=== PATIENT | female | born 1995 | race Caucasian/White ===

== ENCOUNTER 2018-08-28 07:57 | Emergency (ER) | payer BC ==
[2018-08-28 08:36] LABS: HCG UR QUAL NEGATIVE
--- NOTE | 2018-08-28 09:37 | ED Physician Documentation ---
PD HPI URI - Stated complaint Stated Complaint: FLU LIKE SYMPTOMS - Chief complaint Chief Complaint: Fever - History obtained from History obtained from: Patient - History of Present Illness Timing - onset: How many days ago (3) Timing duration: Days (3) Timing details: Gradual onset, Still present Associated symptoms: Fever, Chills, Sweats, Nasal congestion, Rhinorrhea, Sore throat, Dry cough Contributing factors: Sick contact Improves by: Rest, Medication Similar symptoms before: Has not had sx before Recently seen: Not recently seen - Additional information Additional information: Previously well 23-year-old female has developed cough and congestion about 3 days ago and she developed a high fever last night. She has muscle aches and pains and other people at her work have been sick. Review of Systems Constitutional: reports: Fever, Chills, Myalgias, Fatigue Eyes: denies: Decreased vision Ears: denies: Ear pain Nose: reports: Rhinorrhea / runny nose, Congestion Throat: reports: Sore throat Cardiac: denies: Chest pain / pressure, Palpitations Respiratory: reports: Cough. denies: Dyspnea GI: denies: Vomiting : denies: Dysuria PD PAST MEDICAL HISTORY - Past Medical History Past Medical History: No Other Past Medical History: Alpha 1 deficincey. - Past Surgical History Past Surgical History: Yes HEENT: Tonsil/Adenoidectomy - Present Medications Home Medications: Ambulatory Orders Medication Instructions Recorded Confirmed Amox/Clav 875/125 [Augmentin] 1 each PO Q12H #20 tablet 08/28/18 Oseltamivir [Tamiflu] 75 mg PO BID 5 Days #10 capsule 08/28/18 - Allergies Allergies/Adverse Reactions: Allergies Allergy/AdvReac Type Severity Reaction Status Date / Time No Known Drug Allergies Allergy Verified 08/28/18 08:11 - Social History Does the pt smoke?: No Smoking Status: Never smoker Does the pt drink ETOH?: No Does the pt have substance abuse?: No - Immunizations Immunizations are current?: Yes PD ED PE NORMAL - Vitals Vital signs reviewed: Yes (tachy ) - General General: Alert and oriented X 3, No acute distress, Well developed/nourished - HEENT HEENT: Atraumatic, PERRL, EOMI, Pharynx benign, Other (both TM's are inflamed with the left more inflamed than the right with some distortion of the landmarks. ) - Neck Neck: Supple, no meningeal sign, No bony TTP - Cardiac Cardiac: No murmur, Other (tachy to 110) - Respiratory Respiratory: No respiratory distress, Clear bilaterally - Abdomen Abdomen: Soft, Non tender - Back Back: No CVA TTP, No spinal TTP - Derm Derm: Normal color, Warm and dry, No rash - Extremities Extremities: No deformity, No edema - Neuro Neuro: Alert and oriented X 3, engineer conductor 2-12 intact, No motor deficit, No sensory def icit, Normal speech Eye Opening: Spontaneous Motor: Obeys Commands Verbal: Oriented GCS Score: 15 - Psych Psych: Normal mood, Normal affect Results - Vitals Vitals: Vital Signs - 24 hr 08/28/18 08:09 Temperature 37.2 C Heart Rate 124 H Respiratory 16 Rate Blood Pressure 127/70 O2 Saturation 98 Oxygen O2 Source Room air - Labs Labs: Laboratory Tests 08/28/18 08/28/18 08:20 08:20 Ur Specific [place] 1.020 Urine HCG, Qual NEGATIVE Influenza A (Rapid) POSITIVE H Influenza B (Rapid) Negative PD MEDICAL DECISION MAKING - ED course Complexity details: considered differential, d/w patient ED course: 23-year-old female with URI 3 days developed a fever last night and is now positive for influenza A. In addition she has otitis on examination. She is administered dexamethasone 10 mg orally and we will place her on some Tamiflu and Augmentin. Departure - Departure Disposition: 01 Home, Self Care Clinical Impression: Influenza A Otitis media Qualifiers: Otitis media type: suppurative Chronicity: acute Laterality: bilateral Recurrence: not specified as recurrent Spontaneous tympanic membrane rupture: without spontaneous rupture Qualified Code(s): H66.003 - Acute suppurative otitis media without spontaneous rupture of ear drum, bilateral Condition: Stable Instructions: ED Flu, ED Otitis Media Acute Adult Follow-Up: [facility] [Provider Group] Prescriptions: Amox/Clav 875/125 [Augmentin] 1 each PO Q12H #20 tablet Oseltamivir [Tamiflu] 75 mg PO BID 5 Days #10 capsule
[2018-08-28 09:47] VITALS: BP 126/74
[2018-08-28] MEDS ORDERED: DEXAMETHASONE 10 MG/ML VIAL PO STA (10:12)
== END 2018-08-28 10:15 | disposition home or self-care (01) ==
LOC: ED 07:57
DX: J10.1 Influenza due to other identified influenza virus with other respiratory manifestations (principal); H66.003 Acute suppurative otitis media without spontaneous rupture of ear drum, bilateral
CPT/HCPCS: 81025; 87275; 87276; 99283

== ENCOUNTER 2019-03-06 08:50 | Outpatient (CLI) | payer OTHER ==
--- NOTE | 2019-03-06 10:34 | Ultrasound Report ---
Reason: TEST POSITIVE Procedure Date: 03/06/2019 Accession Number: [id number] / [id number] Procedure: US - OB First Trimester CPT Code: FULL RESULT: EXAM: FIRST TRIMESTER OBSTETRIC ULTRASOUND (Less than 11 weeks) EXAM DATE: 03/06/2019 09:34 AM. CLINICAL HISTORY: test positive. LMP: Unknown. COMPARISONS: None. TECHNIQUE: Transabdominal and transvaginal ultrasound examination with static image documentation. CLINICAL DATES: EGA 13 weeks 2 days with JEANNE 09/09/2019 based on LMP. ASSESSMENT: Gestational Sac: Single intrauterine. Mean gestational sac diameter: 65 mm = 12 weeks 6 days. Embryo: CRL (crown-rump length) 70 mm = 13 weeks 1 day. Cardiac activity: 144 beats per minute. Yolk sac: Not visualized. Amniotic fluid: Not accurately assessed at this gestational age. Early placenta: Posterior. Other: No perigestational fluid collection demonstrated. MATERNAL STRUCTURES: Uterus: Anteverted/Retroverted. Unremarkable. Cervix: Closed. Right Ovary/Adnexa: The ovary measures cm, volume cc. Unremarkable. Left Ovary/Adnexa: The ovary measures cm, volume cc. Unremarkable. Free Fluid: None. Other: None. IMPRESSION: 1. Single viable intrauterine at EGA 13 weeks 1 day with JEANNE 09/10/2019 based on crown-rump length, which is concordant with clinical dates. 2. Assigned dating is JEANNE 09/10/2019 based on current ultrasound. RADIA
== END 2019-03-06 08:51 | disposition home or self-care (01) ==
LOC: DI 08:50
PROVIDERS: ATTEND Obstetrics & Gynecology
DX: Z32.01 Encounter for pregnancy test, result positive (principal)
CPT/HCPCS: 76801

== ENCOUNTER 2019-03-14 08:00 | Outpatient (CLI) | payer OTHER ==
[2019-03-14 15:42] LABS: MUDS CUTOFF CONCENTRATIONS CUTOFF CONC BELOW:
[2019-03-14 16:08] LABS: BILIRUBIN,URINE NEGATIVE (NEGATIVE); GLUCOSE, URINE (UA) NEGATIVE (NEGATIVE); KETONES,URINE (UA) NEGATIVE (NEGATIVE); LEUKOCYTE ESTERASE, URINE NEGATIVE (NEGATIVE); NITRITE,URINE NEGATIVE (NEGATIVE); OCCULT BLOOD,URINE MODERATE (NEGATIVE); PROTEIN,URINE NEGATIVE (NEGATIVE); UROBILINOGEN,URINE 0.2 (NORMAL) E.U./dL (NORMAL)
[2019-03-14 16:12] LABS: CLARITY,URINE CLOUDY (CLEAR)
[2019-03-14 17:14] LABS: AMPHETAMINE SCREEN,URINE NEGATIVE (NEGATIVE); BENZODIAZEPINES SCREEN, URINE NEGATIVE (NEGATIVE); COCAINE SCREEN URINE NEGATIVE (NEGATIVE); METHADONE SCREEN, URINE NEGATIVE (NEGATIVE); METHAMPHETAMINES SCREEN, URINE NEGATIVE (NEGATIVE); OPIATE SCREEN, URINE NEGATIVE (NEGATIVE); OXYCODONE SCREEN, URINE NEGATIVE (NEGATIVE); PROPOXYPHENE SCREEN, URINE NEGATIVE (NEGATIVE); TRICYCLIC ANTIDEPRESSANT,URINE NEGATIVE (NEGATIVE)
[2019-03-14 17:46] LABS: AMORPHOUS SEDIMENT,UR Marked /LPF; BACTERIA,URINE None Seen /HPF (None Seen); SQUAMOUS EPITHELIAL CELL,UR FEW Squamous (<= Few)
[2019-03-14 21:23] LABS: CANDIDA GROUP DNA NEGATIVE (NEGATIVE); CANDIDA KRUSEI DNA NEGATIVE (NEGATIVE); TRICHOMONAS VAGINALIS DNA NEGATIVE (NEGATIVE)
[2019-03-14 22:24] LABS: TRICHOMONAS VAGINALIS DNA NEGATIVE (NEGATIVE)
== END 2019-03-14 23:59 | disposition home or self-care (01) ==
LOC: LAB.R 08:00
PROVIDERS: ATTEND Obstetrics & Gynecology
DX: Z11.3 Encounter for screening for infections with a predominantly sexual mode of transmission (principal); N89.8 Other specified noninflammatory disorders of vagina; Z36.89 Encounter for other specified antenatal screening
CPT/HCPCS: 80306; 81001; 87086; 87491; 87591; 87661; 87801

== ENCOUNTER 2019-03-19 14:33 | Outpatient (CLI) | payer OTHER ==
[2019-03-19 14:56] LABS: BASOPHILS % (AUTO) 0.1 %; EOSINOPHILS % (AUTO) 0.3 %; HGB - HEMOGLOBIN 14.4 g/dL (12.0-16.0); LYMPHOCYTES # (AUTO) 1.2 10^3/uL (1.5-3.5); LYMPHOCYTES % (AUTO) 15.5 %; MEAN CORPUSCULAR HEMOGLOBIN 29.5 pg (27.0-31.0); MEAN CORPUSCULAR HGB CONC 33.2 g/dL (32.0-36.0); MEAN CORPUSCULAR VOLUME 88.9 fL (81.0-99.0); MEAN PLATELET VOLUME 11.1 fL (7.9-10.8); MONOCYTES # (AUTO) 0.4 10^3/uL (0.0-1.0); MONOCYTES % (AUTO) 5.9 %; NEUTROPHILS # (AUTO) 5.8 10^3/uL (1.5-6.6); NEUTROPHILS % (AUTO) 77.8 %; PLT - PLATELET COUNT 192 10^3/uL (130-450); RED BLOOD COUNT 4.88 10^6/uL (4.20-5.40); RED CELL DISTRIBUTION WIDTH 12.2 % (12.0-15.0); WHITE BLOOD COUNT 7.4 x10^3/uL (4.8-10.8)
[2019-03-19 15:00] LABS: BILIRUBIN,URINE NEGATIVE (NEGATIVE); GLUCOSE, URINE (UA) NEGATIVE (NEGATIVE); KETONES,URINE (UA) TRACE mg/dL (NEGATIVE); LEUKOCYTE ESTERASE, URINE TRACE (NEGATIVE); MUDS CUTOFF CONCENTRATIONS CUTOFF CONC BELOW:; NITRITE,URINE NEGATIVE (NEGATIVE); OCCULT BLOOD,URINE NEGATIVE (NEGATIVE); PH,URINE 5.5 PH (5.0-7.5); PROTEIN,URINE NEGATIVE (NEGATIVE); UROBILINOGEN,URINE 0.2 (NORMAL) E.U./dL (NORMAL)
[2019-03-19 15:05] LABS: CLARITY,URINE CLEAR (CLEAR)
[2019-03-19 15:09] LABS: AMPHETAMINE SCREEN,URINE NEGATIVE (NEGATIVE); BACTERIA,URINE Rare /HPF (None Seen); BENZODIAZEPINES SCREEN, URINE NEGATIVE (NEGATIVE); COCAINE SCREEN URINE NEGATIVE (NEGATIVE); METHADONE SCREEN, URINE NEGATIVE (NEGATIVE); METHAMPHETAMINES SCREEN, URINE NEGATIVE (NEGATIVE); OPIATE SCREEN, URINE NEGATIVE (NEGATIVE); OXYCODONE SCREEN, URINE NEGATIVE (NEGATIVE); PROPOXYPHENE SCREEN, URINE NEGATIVE (NEGATIVE); RBC,URINE None Seen /HPF (0-5); SQUAMOUS EPITHELIAL CELL,UR MOD Squamous (<= Few); TRICYCLIC ANTIDEPRESSANT,URINE NEGATIVE (NEGATIVE)
[2019-03-19 20:13] LABS: TRICHOMONAS VAGINALIS DNA NEGATIVE (NEGATIVE)
[2019-03-20 11:48] LABS: HEPATITIS C ANTIBODY NON-REACTIVE (NON-REACTIVE)
[2019-03-20 14:22] LABS: HEPATITIS B SURFACE ANTIGEN NON-REACTIVE (NON-REACTIVE)
[2019-03-20 15:56] LABS: HIV AG/AB 4TH GEN NON-REACTIVE (NON-REACTIVE)
== END 2019-03-19 14:34 | disposition home or self-care (01) ==
LOC: LAB 14:33
PROVIDERS: ATTEND Obstetrics & Gynecology
DX: Z36.89 Encounter for other specified antenatal screening (principal); Z11.3 Encounter for screening for infections with a predominantly sexual mode of transmission; O26.899 Other specified pregnancy related conditions, unspecified trimester; Z3A.00 Weeks of gestation of pregnancy not specified; N89.8 Other specified noninflammatory disorders of vagina
CPT/HCPCS: 36415; 80306; 81001; 81003; 81599; 85025; 86592; 86762; 86803; 86850; 86900; 86901; 87086; 87340; 87389; 87491; 87591; 87661; 87801

== ENCOUNTER 2019-04-24 17:46 | Outpatient (CLI) | payer OTHER ==
[2019-04-24 18:03] VITALS: BP 124/67
[2019-04-24 18:32] LABS: BILIRUBIN,URINE NEGATIVE (NEGATIVE); GLUCOSE, URINE (UA) NEGATIVE (NEGATIVE); KETONES,URINE (UA) NEGATIVE (NEGATIVE); LEUKOCYTE ESTERASE, URINE NEGATIVE (NEGATIVE); NITRITE,URINE NEGATIVE (NEGATIVE); OCCULT BLOOD,URINE NEGATIVE (NEGATIVE); PROTEIN,URINE NEGATIVE (NEGATIVE); UROBILINOGEN,URINE 0.2 (NORMAL) E.U./dL (NORMAL)
[2019-04-24 18:35] LABS: CLARITY,URINE CLEAR (CLEAR)
--- NOTE | 2019-04-24 19:14 | PROVIDER PROGRESS NOTE ---
- HPI Chief Complaint: Other (20 week Ab2 dysuria. 2 week Hx of urgency frequency and dysuria. Hx of frequent UTIs. UA is negative for nitrites, Lucocytes.) Current : Vital Signs Temperature 36.6 C 04/24/19 18:02 Heart Rate 93 04/24/19 18:02 Respiratory Rate 20 04/24/19 18:02 Blood Pressure 124/67 04/24/19 18:02 O2 Saturation 96 04/24/19 18:02 Temperature 36.6 C 04/24/19 18:02 Heart Rate 93 04/24/19 18:02 Respiratory Rate 20 04/24/19 18:02 Blood Pressure 124/67 04/24/19 18:02 O2 Saturation 96 04/24/19 18:02 - Procedures Findings: PE VS t 36.7 Heartt RRR Lung clear Abdomin soft tender supra pubic no Calf tenderness. nor FHR. 20 weeks with classic symptoms of UTI and Hx of frequent UTI Rx Macrobid 5 days Keep Appt tomorrw.
== END 2019-04-24 18:55 | disposition home or self-care (01) ==
LOC: WFO 17:46 → FBP 17:49 → WFO 18:55
PROVIDERS: ATTEND Obstetrics & Gynecology
DX: O99.89 Other specified diseases and conditions complicating pregnancy, childbirth and the puerperium (principal); R35.0 Frequency of micturition; R30.0 Dysuria; Z87.440 Personal history of urinary (tract) infections; Z3A.20 20 weeks gestation of pregnancy
CPT/HCPCS: 81001; 81003; 87086; 99212

== ENCOUNTER 2019-04-25 08:00 | Outpatient (CLI) | payer OTHER ==
[2019-04-25 18:17] LABS: CANDIDA GROUP DNA NEGATIVE (NEGATIVE); CANDIDA KRUSEI DNA NEGATIVE (NEGATIVE); TRICHOMONAS VAGINALIS DNA NEGATIVE (NEGATIVE)
== END 2019-04-25 23:59 | disposition home or self-care (01) ==
LOC: LAB.R 08:00
PROVIDERS: ATTEND Obstetrics & Gynecology
DX: N89.8 Other specified noninflammatory disorders of vagina (principal)
CPT/HCPCS: 87661; 87801

== ENCOUNTER 2019-06-14 12:47 | Outpatient (CLI) | payer OTHER ==
[2019-06-14 13:20] LABS: ALBUMIN 3.1 g/dL (3.2-5.5); ALBUMIN/GLOBULIN RATIO 0.9 (1.0-2.2); BILIRUBIN,TOTAL 0.9 mg/dL (0.2-1.0); CREATININE 0.5 mg/dL (0.4-1.0); TOTAL PROTEIN 6.6 g/dL (6.7-8.2)
== END 2019-06-14 12:48 | disposition home or self-care (01) ==
LOC: LAB 12:47
PROVIDERS: ATTEND Obstetrics & Gynecology
DX: O99.280 Endocrine, nutritional and metabolic diseases complicating pregnancy, unspecified trimester (principal); E88.01 Alpha-1-antitrypsin deficiency; Z3A.00 Weeks of gestation of pregnancy not specified
CPT/HCPCS: 36415; 80053

== ENCOUNTER 2019-06-17 11:43 | Outpatient (CLI) | payer OTHER ==
[2019-06-17 13:03] LABS: HGB - HEMOGLOBIN 12.8 g/dL (12.0-16.0); MEAN CORPUSCULAR HEMOGLOBIN 29.4 pg (27.0-31.0); MEAN CORPUSCULAR HGB CONC 32.3 g/dL (32.0-36.0); RED BLOOD COUNT 4.35 10^6/uL (4.20-5.40); RED CELL DISTRIBUTION WIDTH 13.1 % (12.0-15.0); WHITE BLOOD COUNT 7.8 x10^3/uL (4.8-10.8)
== END 2019-06-17 11:44 | disposition home or self-care (01) ==
LOC: LAB 11:43
PROVIDERS: ATTEND Obstetrics & Gynecology
DX: O36.0990 Maternal care for other rhesus isoimmunization, unspecified trimester, not applicable or unspecified (principal); Z3A.00 Weeks of gestation of pregnancy not specified
CPT/HCPCS: 36415; 82950; 85027; 86850

== ENCOUNTER 2019-08-21 14:20 | Outpatient (CLI) | payer BC, OTHER | END 2019-08-21 14:21 | disposition home or self-care (01) | LOC: COV 14:20 | PROVIDERS: ATTEND Family Medicine | DX: R05 Cough (principal); R50.9 Fever, unspecified | CPT/HCPCS: 81599 ==

== ENCOUNTER 2019-08-23 08:00 | Outpatient (CLI) | payer BC, OTHER ==
[2019-08-23 21:59] LABS: TRICHOMONAS VAGINALIS DNA NEGATIVE (NEGATIVE)
== END 2019-08-23 23:59 | disposition home or self-care (01) ==
LOC: LAB.R 08:00
PROVIDERS: ATTEND Advanced Practice Midwife
DX: O09.90 Supervision of high risk pregnancy, unspecified, unspecified trimester (principal)
CPT/HCPCS: 87491; 87591; 87661; 87797

== ENCOUNTER 2019-09-13 07:40 | Outpatient (CLI) | payer OTHER ==
--- NOTE | 2019-09-14 20:10 | Ultrasound Report ---
Reason: SUPERVISION HIGH RISK Procedure Date: 09/13/2019 Accession Number: [id number] / [id number] Procedure: US - OB Biophysical Profile CPT Code: Final Report FULL RESULT: EXAM: BIOPHYSICAL PROFILE EXAM DATE: 09/13/2019 08:46 AM. CLINICAL HISTORY: Supervision high-risk . Unspecified trimester. COMPARISON: 03/06/2019. TECHNIQUE: Real-time sonographic evaluation of the fetus performed by the facility maintenance technician. Multiple lifeline representatives static images were saved for review. DATING: Established EGA 40 weeks, 4 days with JEANNE 09/09/2019. GENERAL EVALUATION Nicole . Cardiac activity: 128 bpm. movement: Visualized. Presentation: Cephalic. Placenta: Posterior fundal position. Amniotic fluid: Normal. GABI 4.6 cm. MVP 13.2 cm. BIOPHYSICAL PROFILE Breathing = 2 Movement = 2 Tone = 2 Amniotic Fluid = 2 Total 01/10 IMPRESSION: 1. Nicole live intrauterine with gestational age 40 weeks, 4 days based on established JEANNE. 2. Biophysical profile score 8 of 8. MARS
== END 2019-09-13 07:41 | disposition home or self-care (01) ==
LOC: DI 07:40
PROVIDERS: ATTEND Advanced Practice Midwife
DX: O09.93 Supervision of high risk pregnancy, unspecified, third trimester (principal); Z3A.40 40 weeks gestation of pregnancy
CPT/HCPCS: 76819

== ENCOUNTER 2019-09-13 18:58 | Outpatient (CLI) | payer OTHER ==
[2019-09-13 21:02] LABS: RUPTURE OF MEMBRANES PLUS NEGATIVE (NEGATIVE)
[2019-09-13 21:37] VITALS: BP 134/87
--- NOTE | 2019-09-17 11:00 | PROVIDER PROGRESS NOTE ---
- HPI Chief Complaint: Leakage of vaginal fluid (concerened about possible SROM) Current : Current EDU 09/09/19 Gestation 40 Weeks and 4 Days 3 Para 0 Vital Signs Temperature 36.5 C 09/13/19 19:02 Heart Rate 103 H 09/13/19 19:02 Respiratory Rate 18 09/13/19 19:02 Blood Pressure 129/89 H 09/13/19 19:02 Temperature 36.5 C 09/13/19 19:02 Heart Rate 82 09/13/19 19:02 Respiratory Rate 18 09/13/19 19:02 Blood Pressure 134/87 H 09/13/19 19:02 O2 Saturation - Procedures OB Procedure Performed: NST (reactive) Diagnosis/Indication for NST: Other (R/O SROM) NST Procedure: NST Procedure Start Date 09/13/19 Start Time 18:54 Stop Time 21:25 Vibroacoustic Stimulation Used No Patient States Movement Yes Service Date of procedure: 09/13/19 Findings: ROM + Negative - Plan Plan: Reviewed SROM, FM, Labor.
== END 2019-09-13 20:30 | disposition home or self-care (01) ==
LOC: WFO 18:58 → FBP 19:00 → WFO 20:30
PROVIDERS: ATTEND Obstetrics & Gynecology
DX: O09.93 Supervision of high risk pregnancy, unspecified, third trimester (principal); O99.89 Other specified diseases and conditions complicating pregnancy, childbirth and the puerperium; N89.8 Other specified noninflammatory disorders of vagina; Z3A.40 40 weeks gestation of pregnancy
CPT/HCPCS: 59025; 76819; 84112; 99213

== ENCOUNTER 2019-09-15 00:18 | Inpatient (IN) | payer BC, OTHER ==
[2019-09-15] MEDS ORDERED: SODIUM CHLORIDE FLUSH 0.9% 10 ML SYRINGE IVP PRN (00:58)
[2019-09-15] MEDS ORDERED: SODIUM CHLORIDE FLUSH 0.9% 10 ML SYRINGE IVP SCH (01:00)
[2019-09-15] MEDS ORDERED: LACTATED RINGERS 1,000 ML IV SCH ×2 (01:00→18:00)
[2019-09-15] MEDS ORDERED: AMPICILLIN 2 GM in SODIUM CHLORIDE 0.9% MINIBAG 100 ML IV ONE (01:30)
[2019-09-15 02:00] LABS: BASOPHILS % (AUTO) 0.3 %; EOSINOPHILS # (AUTO) 0.1 10^3/uL (0.0-0.7); EOSINOPHILS % (AUTO) 0.5 %; HGB - HEMOGLOBIN 13.8 g/dL (12.0-16.0); LYMPHOCYTES # (AUTO) 1.6 10^3/uL (1.5-3.5); MEAN CORPUSCULAR HEMOGLOBIN 28.5 pg (27.0-31.0); MEAN CORPUSCULAR HGB CONC 32.5 g/dL (32.0-36.0); MEAN CORPUSCULAR VOLUME 87.4 fL (81.0-99.0); MEAN PLATELET VOLUME 12.3 fL (7.9-10.8); MONOCYTES # (AUTO) 0.8 10^3/uL (0.0-1.0); MONOCYTES % (AUTO) 7.1 %; NEUTROPHILS # (AUTO) 8.2 10^3/uL (1.5-6.6); NEUTROPHILS % (AUTO) 76.2 %; PLT - PLATELET COUNT 161 10^3/uL (130-450); RED BLOOD COUNT 4.85 10^6/uL (4.20-5.40); RED CELL DISTRIBUTION WIDTH 13.3 % (12.0-15.0); WHITE BLOOD COUNT 10.8 x10^3/uL (4.8-10.8)
[2019-09-15 02:18] LABS: URIC ACID 5.2 mg/dL (2.6-7.2)
[2019-09-15 03:50] LABS: ALBUMIN 2.9 g/dL (3.2-5.5); BILIRUBIN,DIRECT 0.1 mg/dL (0.1-0.5); BILIRUBIN,TOTAL 0.7 mg/dL (0.2-1.0); TOTAL PROTEIN 6.4 g/dL (6.7-8.2)
[2019-09-15] MEDS: AMPICILLIN 1 GM in SODIUM CHLORIDE 0.9% MINIBAG 100 ML IV SCH ×3 (06:06→14:35)
--- NOTE | 2019-09-15 08:18 | PROVIDER PROGRESS NOTE ---
Labor Progress Note - Uterine Monitoring Uterine Monitoring Mode: positive: External toco Contraction Frequency (min/apart): none - Monitoring Heart Rate Baseline: 115 Heart Rate Variability: positive: Moderate (6-25 bmp) Accelerations: positive: Present, 15x15 Decelerations: positive: None Strip Review: positive: Category I - Vaginal Exam Dilation (in cm): 4 Effacement (%): 90% Station: -3 Cervical Position: Midposition - Labor Progress Note Labor Progress Note/Additional Text: Not ankur Statr Pit
[2019-09-15] MEDS ORDERED: OXYTOCIN/SODIUM CHLORIDE 500 ML IV SCH (09:00)
--- NOTE | 2019-09-15 10:27 | PREOP HISTORY & PHYSICAL ---
DATE OF SERVICE: 09/15/2019 Physician: Calvin Grullon MD IDENTIFICATION: The patient is a 24-year-old G3, P0, AB2 woman whose EDC is 09/09/2019; this makes h er 41 weeks. CHIEF COMPLAINT: Spontaneous rupture of membranes. HISTORY OF PRESENT ILLNESS: The patient was at home when about 11:45 on the evening of 09/14/2019, s he developed leaking fluids. She presented to Labor and Delivery, at which time she had a ROM-plus pe rformed, which was positive. She also had fluid leaking from the vagina. OB HISTORY: Her OB care, started at 20 weeks at our clinic. Her labs show her to be O-negative. Sh e is rubella equivocal. Her SDI checks are negative. Her 50 gram Glucola was 137. She was GBS posi tive. She received RhoGAM antenatally. PAST MEDICAL HISTORY: Positive for alpha 1 antitrypsin deficiency. She also has anxiety and migrain es. PAST SURGICAL HISTORY: Positive for tonsillectomy, D-and-C. ALLERGIES: SHELLFISH AND LORTAB. CURRENT MEDICATIONS: vitamins. HABITS: The patient has never smoked and is told she should never smoke or be around people who do s moke. FAMILY HISTORY: Positive for a mother with alpha 1 antitrypsin deficiency, who has undergone a doubl e lung transplant as well as a father who has multiple sclerosis. PHYSICAL EXAMINATION: GENERAL: Well-developed, well-nourished female, in no acute distress. VITAL SIGNS: Temperature is 36.7, heart rate is 98, blood pressure initially was 143/84 but came luz k down to 122/65, respirations are 18, saturations were 99. HEENT: Pupils are equal and round. Extraocular muscles are intact. CARDIOVASCULAR: Regular rate and rhythm without murmurs. LUNGS: Lung hauser are clear without rales or wheezes. ABDOMEN: Gravid. Her last abdominal exam showed her fundal height was 39 cm. PELVIC: Cervical examination this morning showed her to be 4 cm. She was 90% effaced. She was -3, vertex presentation with evidence of rupture of membranes. IMPRESSION: 1. A 24-year-old G3, P0 female at 41 weeks. 2. Spontaneous rupture of membranes. 3 Group-B strep positive. 4. Alpha 1 antitrypsin deficiency. PLAN: Since she has not developed contractions, at this point, we will start Pitocin to augment her labor. We will continue with ampicillin during her labor to cover her group-B strep. We will adminis ter an epidural as patient requests. TD: 09/15/2019 09:25
[2019-09-15] MEDS ORDERED: fentaNYL 100 MCG/2 ML VIAL IVP PRN (13:33)
[2019-09-15] MEDS ORDERED: ONDANSETRON 4 MG/2 ML VIAL IVP PRN (15:46)
[2019-09-15] MEDS ORDERED: ONDANSETRON 4 MG/2 ML VIAL ONE (15:53)
[2019-09-15] MEDS ORDERED: miSOPROStoL 200 MCG TABLET ONE (16:21)
[2019-09-15] MEDS ORDERED: LIDOCAINE-MPF 1% 30 ML VIAL ONE (16:45)
[2019-09-15] MEDS ORDERED: diphenhydrAMINE 25 MG CAPSULE PO PRN (17:21)
[2019-09-15] MEDS ORDERED: WITCH HAZEL/GLYCERIN 1 PAD TOP PRN (17:21)
[2019-09-15] MEDS ORDERED: HYDROCORTISONE 1% CREAM 28 GM TUBE PR PRN (17:21)
--- NOTE | 2019-09-15 17:40 | DELIVERY NOTE ---
Delivery Note - Labor Labor: positive: Induced by oxytocin - Infant Delivery Method Delivery Method: positive: Spontaneous vaginal delivery - Presentation Presentation: positive: Vertex, Compound (Right hand), WANDA - right occiput anterior - Anesthetic Anesthetic Type: Anesthetic: positive: Lidocaine - 1% plain Volume: positive: Other (20) - Amniotic Fluid Description Amniotic Fluid Description: positive: Clear - Episiotomy Type Episiotomy Type: positive: Midline (second degree) - Laceration Laceration: positive: None - Suture Suture Type: positive: Vicryl Suture Size: positive: 3-0 - Delivery Outcome Delivery Outcome: positive: Livebirth - : positive: Placed in direct skin contact with mother, Bulb syringe, Stimulated, [place] used sex: positive: Female : Apgars 8/9 - Cord Cord: positive: 3 vessels - Placenta Placenta: positive: Intact, Spontaneous - Estimated Blood Loss Estimated Blood Loss (in cc): 300 - Post Delivery Events Post Delivery Events: positive: No post delivery events - Delivery Comments (Free Text/Narrative) Delivery Comments (Free Text/Narrative): Patient presented to labor and delivery with minimal to no contractions. She received 4 doses of ampicillin because she is group B strep positive. At roughly 8:00 in the morning she was started on Pitocin for induction of labor. She reached maximum 12 milliunits. She develop regular contractions she was given fentanyl for labor analgesia she declined an epidural. She reached complete at 1621. She initiated pushing at that time. She pushed well and at 1642 because of decelerations to the 80s and 90s and episiotomy was cut because of a tight band on the internal portion of posterior vagina the head of the infant easily delivered and at time of delivery the left hand was noted to be on the right shoulder. The cord was also noted to be around the lower portion of the neck posteriorly. The infant delivered without difficulty was placed on the maternal abdomen. The cord was allowed to stop pulsating at which time it was doubly clamped and divided. Her placenta spontaneous delivered at 1659 was inspected and noted to be intact. Her second-degree episiotomy was repaired with 3 of our Vicryl starting at the posterior vagina And progressing to the hymenal ring. [id number]'s were then taken to repair the perineal body deep and then the Perineal body was repaired in the usual fashion. Both mother and infant tolerated delivery well.
[2019-09-15] MEDS ORDERED: OXYTOCIN/SODIUM CHLORIDE 500 ML IV PRN (17:45)
[2019-09-15] MEDS: IBUPROFEN 800 MG TABLET PO SCH (18:21)
[2019-09-15] MEDS: ACETAMINOPHEN 500 MG TABLET PO SCH (18:21)
[2019-09-15] MEDS: DOCUSATE SODIUM 100 MG CAPSULE PO SCH (21:37)
[2019-09-16] MEDS: IBUPROFEN 800 MG TABLET PO SCH ×4 (03:01→20:57)
[2019-09-16] MEDS: ACETAMINOPHEN 500 MG TABLET PO SCH (03:01)
[2019-09-16] MEDS: DOCUSATE SODIUM 100 MG CAPSULE PO SCH ×2 (08:02→20:57)
--- NOTE | 2019-09-16 10:17 | PROVIDER PROGRESS NOTE ---
Subjective - Prog Note Date Prog Note Date: 09/16/19 Prog Note Time: 10:15 - Subjective Pt reports feeling: Improved (pain 08/12. breast feeding. taking motrin) Objective - Vital Signs/Intake & Output Reviewed Vital Signs: Yes Vital Signs: Vital Signs x48h Temp Pulse Resp BP Pulse Ox 09/16/19 08:07 36.3 C L 70 18 127/81 H 100 09/16/19 02:44 36.3 C L 69 16 118/67 99 Intake & Output: Intake & Output 09/13/19 09/14/19 09/15/19 09/16/19 23:59 23:59 23:59 23:59 Intake Total 2021.500 Output Total 300 Balance 1722.500 - Objective General Appearance: positive: No acute distress, Alert Abdomen: positive: Non-tender, Mass (u-3) Extremities: negative: Calf tenderness, Cristina's sign/cords - Lab Results Fish Bones: 09/15/19 01:45 Other Labs: Lab Results x24hrs 09/15/19 Range/Units 20:45 Blood Type O NEGATIVE Weak D (Du) WEAK-D NEGATIVE Maternal Bleed NEGATIVE (NEGATIVE) Assessment/Plan - Problem List (1) (spontaneous vaginal delivery) Impression: progressing well (3) Rh negative status during Impression: baby Rh positive Rhogam
[2019-09-16] MEDS ORDERED: RHO(D) IMMUNE GLOBULIN 300 MCG SYRINGE IM ONE (11:15)
[2019-09-16] MEDS ORDERED: MEASLES,MUMPS & RUBELLA VACC 0.5 ML VIAL SUBQ ONE (11:15)
[2019-09-17] MEDS: IBUPROFEN 800 MG TABLET PO SCH ×2 (03:10→08:48)
[2019-09-17 08:14] VITALS: BP 129/66
--- NOTE | 2019-09-17 08:32 | PROVIDER PROGRESS NOTE ---
Subjective - Prog Note Date Prog Note Date: 09/17/19 Prog Note Time: 08:30 - Subjective Pt reports feeling: Improved (Pain 2/10. breast feeding.) Objective - Vital Signs/Intake & Output Reviewed Vital Signs: Yes Vital Signs: Vital Signs x48h Temp Pulse Resp BP Pulse Ox 09/17/19 08:00 36.7 C 64 17 129/66 09/17/19 03:30 36.6 C 77 20 116/72 97 Intake & Output: Intake & Output 09/14/19 09/15/19 09/16/19 09/17/19 23:59 23:59 23:59 23:59 Intake Total 2021.500 Output Total 300 Balance 1722.500 - Objective General Appearance: positive: No acute distress, Alert Abdomen: positive: Non-tender, No organomegaly, No distention, Mass (U-3) Extremities: negative: Calf tenderness, Cristina's sign/cords - Lab Results Fish Bones: 09/15/19 01:45 Assessment/Plan - Problem List (1) (spontaneous vaginal delivery) Impression: doing well Discharge may room in if needed (3) Rh negative status during Impression: Pt has received her RhoGam.
--- NOTE | 2019-09-17 08:33 | Discharge Plan ---
Discharge Plan Problem Reviewed?: Yes Disposition: Home, Self Care Condition: Good Diet: Regular Activity Restrictions: pelvic rest 6 weeks Shower Restrictions: No Driving Restrictions: No No Smoking: If you smoke, Please STOP! Call for help.
[2019-09-17] MEDS: DOCUSATE SODIUM 100 MG CAPSULE PO SCH (08:48)
--- NOTE | 2019-09-17 09:02 | DISCHARGE SUMMARY ---
Physician: Calvin Grullon MD DATE OF ADMISSION: 09/15/2019 DATE OF DISCHARGE: 09/17/2019 ADMITTING DIAGNOSES 1. A 24-year-old female at 41 weeks. 2. Spontaneous rupture of membranes. 3. Group B Streptococcus positive. 4. Alpha-1 antitrypsin deficiency. DISCHARGE DIAGNOSES 1. A 24-year-old female at 41 weeks. 2. Spontaneous rupture of membranes. 3. Group B Streptococcus positive. 4. Alpha-1 antitrypsin deficiency. PROCEDURES 1. Pitocin augmentation. 2. Assisted vaginal delivery. 3. Episiotomy with repair. PRESENTING HISTORY: Patient is a 24-year-old G3, P0, AB2 female whose EDC was 09/08 making her 41 we eks. She presented with spontaneous rupture of membranes at about 11:45 in the evening of the . She presented with leaking fluid, at which time she had AROM, which was positive. Because she is gr oup B strep positive, it was decided to initiate ampicillin prior to starting Pitocin. She has a fam matthew history of alpha-1 antitrypsin deficiency in a mother who has had a previous lung transplant. Elizabeth montilla herself is a carrier for alpha-1 antitrypsin deficiency. Initially, her blood pressure on admissio n was 143/84. However, this normalized with time. LABORATORIES: Patient's CBC on admission showed a white count of 10.8, hemoglobin was 13.8, hematocr it was 42.4, platelets were 161. Her chemistries showed a uric acid of 5.2. Her AST and ALT were anisha th in the normal limits. HOSPITAL COURSE: Patient admitted, administered amoxicillin for group B strep prophylaxis. On the m orning of the , Pitocin was started because of the lack of spontaneous labor. She developed stro ng uterine contractions. She received fentanyl for labor analgesia, declined an epidural. She reach ed a maximum of 12 milliunits of Pitocin. She reached complete at 1612 and pushed well. She at 1640 received an episiotomy because of decelerations. At time of delivery, she was noted to have a left hand up by the shoulder. There was also a loose nuchal cord, which was presenting. Her c ourse was unremarkable. Her diet was advanced. She is eating regularly. She is being discharged to home at this time. Infant may be having difficulty with high bilirubin levels, therefore, they may keep the . DISCHARGE MEDICATIONS 1. Motrin. 2. She has her home supply of stool softener, as well as bowel stimulants. We have discussed , its advantages as well as its limitations. We have also discussed c ontraception. She will be called back in 1 week to see how she is doing. TD: 09/17/2019 08:40
--- NOTE | 2019-09-17 13:01 | Labor Flowsheet ---
Labor Flowsheet Datetime Report Generated by CPN: 09/17/2019 13:01 Datetime: 09/17/2019 07:54 VITAL SIGNS NBP Sys/Mary/Mean (mmHg): 129 : 66 : 81 Pulse: 64 Datetime: 09/16/2019 20:39 SpO2 (%): 99 Datetime: 09/15/2019 19:00 Stage of : Recovery Datetime: 09/15/2019 17:02 Respirations: 18 Temperature (C): 36.5 Datetime: 09/15/2019 16:59 LaborFlag: Labor Datetime: 09/15/2019 16:58 Medication Comments: pitocin wide open Datetime: 09/15/2019 16:54 Membranes Ruptured Date/Time: 09/14/2019 23:46 Membranes Rupture Method: Spontaneous Amniotic Fluid Color: Clear Amniotic Fluid Amount: Moderate Amniotic Fluid Odor: Normal Datetime: 09/15/2019 16:52 Duration (sec): 40-50 FHR Baseline Rate : 115 Comments: audible decels to 80s Datetime: 09/15/2019 16:50 Stage 2 Comments: episiotomy 2nd degree Datetime: 09/15/2019 16:45 Actions for Decelerations: Oxygen Applied PATIENT CARE Oxygen Amount (LPM): 2 Datetime: 09/15/2019 16:40 MEDICATIONS Pitocin (milliunits): Decreased to @ 10 Datetime: 09/15/2019 16:30 ASSESSMENT A Monitor Mode: Telemetry Variability: Moderate 6-25 bpm Accelerations: 15X15 Decelerations: None Category: Category I Datetime: 09/15/2019 16:22 STAGE 2 Pushing: Coached on Pushing Pushing Position: Pushing with Contractions; Pushing Lithotomy Pushing Progress: Descent with Pushing Datetime: 09/15/2019 16:21 VAGINAL EXAM Dilatation (cm): 10.0 Effacement (%): 100 Station: 2 Exam by: giem Datetime: 09/15/2019 15:57 Vaginal Exam Comments: DrBeatrice Grullon notified, coming to unit Datetime: 09/15/2019 15:54 Antiemetics/Antacids: Zofran (mg) @ 4 Datetime: 09/15/2019 15:44 COMMUNICATION Communication: Call/Page Placed to Provider Provider Notified (Name): Dr. Grullon Notification Reason: Status Update; Patient Request Communication Comments: Notified provider of patient request for zofran. Order received for Zofran 4mg IV Q4 PRN Nausea. Datetime: 09/15/2019 15:00 Contraction Comments: RN @ bedside Datetime: 09/15/2019 14:52 Patient Care Comments: returned from BR Datetime: 09/15/2019 14:50 I/O Interventions: Up to BR Datetime: 09/15/2019 14:12 Patient Position/Activity: Right Lateral Datetime: 09/15/2019 13:56 Temperature Route: Oral Datetime: 09/15/2019 13:47 Analgesics/Sedatives: Fentanyl (mcg) @ 50 Datetime: 09/15/2019 13:30 PAIN Pain Scale: 8 Datetime: 09/15/2019 13:19 Pain Assessment Comments: patient states she is coping well, breathing through ctx. Cervix, Position: Midposition Datetime: 09/15/2019 13:11 Vital Sign Comments: monitor shows materna/ HR coincidence. Maternal HR verified at 94. Datetime: 09/15/2019 12:36 Monitor Interventions for FHR: Ultrasound Adjusted Datetime: 09/15/2019 12:00 Pain Presence: Intermittent Pain Type: Cramping Pain Location: Abdomen Pain Relief Measures: Comfort Measures Pain Coping: Talking Through Contractions Datetime: 09/15/2019 10:34 Antibiotics: Ampicillin IV 1 Gm Datetime: 09/15/2019 09:00 FHR Baseline Changes: No Baseline Change Datetime: 09/15/2019 08:30 Pitocin Checklist: At Least 1 Acceleration of 15 bpm x 15 Seconds in 30 Minutes or Adequate Variabi lity; No More than 1 Late Deceleration Occurred in Past 30 Minutes; No More than 2 Variable Decelerat ions > 60 Seconds in Duration and decreasing >60 bpm in 30 minutes; No More than 5 Uterine Contractio ns in 10 Minutes for any 20 Minute Interval; Uterus Palpates Soft between Contractions Datetime: 09/15/2019 02:59 UTERINE ACTIVITY Monitor Mode: External Monitor Interventions for UA: [place] Adjusted Frequency (min): occasional Quality: Mild Pattern: Normal: <= 5 Contractions in 10 Minutes Resting Tone (Palpate): Relaxed
== END 2019-09-17 12:30 | disposition home or self-care (01) | DRG 807 ==
LOC: WFO 00:18 → FBP 00:19 → WFO 00:57 → FBP 00:58
PROVIDERS: ADMIT Obstetrics & Gynecology; ATTEND Obstetrics & Gynecology
PROC: 10E0XZZ Delivery of Products of Conception, External Approach (ICD-10-PCS; principal; 2019-09-15)
PROC: 0W8NXZZ Division of Female Perineum, External Approach (ICD-10-PCS; 2019-09-15)
PROC: 10907ZC Drainage of Amniotic Fluid, Therapeutic from Products of Conception, Via Natural or Artificial Opening (ICD-10-PCS; 2019-09-15)
DX: O48.0 Post-term pregnancy (principal); Z37.0 Single live birth; O99.824 Streptococcus B carrier state complicating childbirth; O99.284 Endocrine, nutritional and metabolic diseases complicating childbirth; E88.01 Alpha-1-antitrypsin deficiency; O65.5 Obstructed labor due to abnormality of maternal pelvic organs; N89.5 Stricture and atresia of vagina; O32.6XX0 Maternal care for compound presentation, not applicable or unspecified; O69.81X0 Labor and delivery complicated by cord around neck, without compression, not applicable or unspecified; O75.89 Other specified complications of labor and delivery; Z67.41 Type O blood, Rh negative; Z3A.41 41 weeks gestation of pregnancy
CPT/HCPCS: 36415; 80076; 83033; 83615; 84450; 84550; 85025; 86900; 86901; 99212; A9270; J7120

== ENCOUNTER 2020-01-29 08:00 | Outpatient (CLI) | payer BC, OTHER ==
--- NOTE | 2020-01-29 14:11 | XRAY Report ---
PROCEDURE: Foot 3 View RT INDICATIONS: RIGHT FOOT PAIN TECHNIQUE: 3 views of the foot were acquired. COMPARISON: None FINDINGS: Bones: No fractures or dislocations. No suspicious bony lesions. Soft tissues: No tibiotalar joint effusion. Achilles tendon appears normal. IMPRESSION: No fracture. No osseous lesion. If there is continued clinical concern for pathology, then repeat jillian in film radiographs (7-10 days) or advanced imaging (CT, MR, bone scan) should be considered for furt her evaluation. Reviewed by: Kristina Araiza MD, PhD on 01/29/2020 2:10 PM PDT Approved by: Kristina Araiza MD, PhD on 01/29/2020 2:10 PM PDT Station ID: [id number]
== END 2020-01-29 23:59 | disposition home or self-care (01) ==
LOC: DI.S 08:00
PROVIDERS: ATTEND Physician Assistant
DX: M79.671 Pain in right foot (principal)

== ENCOUNTER 2020-03-11 17:36 | Outpatient (CLI) | payer BC, OTHER | END 2020-03-11 17:37 | disposition home or self-care (01) | LOC: COV 17:36 | PROVIDERS: ATTEND Family Medicine | DX: R05 Cough (principal); R19.7 Diarrhea, unspecified; Z20.828 Contact with and (suspected) exposure to other viral communicable diseases ==

== ENCOUNTER 2020-03-18 13:07 | Outpatient (CLI) | payer BC, OTHER | END 2020-03-18 13:08 | disposition home or self-care (01) | LOC: COV 13:07 | PROVIDERS: ATTEND Family Medicine | DX: Z20.828 Contact with and (suspected) exposure to other viral communicable diseases (principal) ==

== ENCOUNTER 2020-03-21 08:00 | Outpatient (CLI) | payer BC, OTHER ==
--- NOTE | 2020-03-21 14:44 | XRAY Report ---
PROCEDURE: Chest 2 View X-Ray INDICATIONS: SHORTNESS OF BREATH TECHNIQUE: 2 view(s) of the chest. COMPARISON: None. FINDINGS: Surgical changes and devices: None. Lungs and pleura: No pleural effusions or pneumothorax. Lungs are clear. Mediastinum: Mediastinal contours are normal. Heart size is normal. Bones and chest wall: No suspicious bony abnormalities. Soft tissues appear unremarkable. IMPRESSION: No acute cardiopulmonary process is seen. Reviewed by: Jordan Tomlinson MD on 03/21/2020 1:43 PM AKDT Approved by: Jordan Tomlinson MD on 03/21/2020 1:43 PM AKDT Station ID: [id number]
== END 2020-03-21 23:59 | disposition home or self-care (01) ==
LOC: DI.S 08:00
PROVIDERS: ATTEND Physician Assistant Medical
DX: R06.09 Other forms of dyspnea (principal)
CPT/HCPCS: 71046

== ENCOUNTER 2020-04-29 08:00 | Outpatient (CLI) | payer BC, OTHER ==
[2020-04-29 18:51] LABS: MUDS CUTOFF CONCENTRATIONS CUTOFF CONC BELOW:
[2020-04-29 18:53] LABS: BILIRUBIN,URINE NEGATIVE (NEGATIVE); GLUCOSE, URINE (UA) NEGATIVE (NEGATIVE); KETONES,URINE (UA) NEGATIVE (NEGATIVE); LEUKOCYTE ESTERASE, URINE SMALL (NEGATIVE); NITRITE,URINE NEGATIVE (NEGATIVE); OCCULT BLOOD,URINE NEGATIVE (NEGATIVE); PROTEIN,URINE NEGATIVE (NEGATIVE); UROBILINOGEN,URINE 0.2 (NORMAL) E.U./dL (NORMAL)
[2020-04-29 19:09] LABS: AMPHETAMINE SCREEN,URINE NEGATIVE (NEGATIVE); BENZODIAZEPINES SCREEN, URINE NEGATIVE (NEGATIVE); COCAINE SCREEN URINE NEGATIVE (NEGATIVE); METHADONE SCREEN, URINE NEGATIVE (NEGATIVE); METHAMPHETAMINES SCREEN, URINE NEGATIVE (NEGATIVE); OPIATE SCREEN, URINE NEGATIVE (NEGATIVE); OXYCODONE SCREEN, URINE NEGATIVE (NEGATIVE); PROPOXYPHENE SCREEN, URINE NEGATIVE (NEGATIVE); TRICYCLIC ANTIDEPRESSANT,URINE NEGATIVE (NEGATIVE)
[2020-04-29 19:36] LABS: BACTERIA,URINE Few /HPF (None Seen); CLARITY,URINE HAZY (CLEAR); RBC,URINE 0-5 /HPF (0-5); SQUAMOUS EPITHELIAL CELL,UR MANY Squamous (<= Few)
== END 2020-04-29 23:59 | disposition home or self-care (01) ==
LOC: LAB.R 08:00
PROVIDERS: ATTEND Nurse Practitioner Obstetrics & Gynecology
DX: Z32.01 Encounter for pregnancy test, result positive (principal)
CPT/HCPCS: 80306; 81001; 87086

== ENCOUNTER 2020-05-26 14:43 | Outpatient (CLI) | payer OTHER ==
--- NOTE | 2020-05-26 16:53 | Ultrasound Report ---
PROCEDURE: OB First Trimester INDICATIONS: POS OUTSIDE/PRIOR DATING DATA: Last menstrual period (LMP): 03/10/2020. LMP-based estimated date of delivery (JEANNE): 12/15/2020. First dating scan (date and location): 05/26/2020. Estimated date of delivery (JEANNE) from first dating scan: 12/19/2020. TECHNIQUE: Real-time scanning was performed of the fetus and maternal pelvic organs, with image documentation. COMPARISON: None. FINDINGS: Embryo: There is a single living intrauterine gestation with an estimated sonographic gestational ag e of approximately 10 weeks and 3 days based off crown-rump length measurement of 3.6 cm. No perigest ational hemorrhage identified. cardiac activity measured approximately 175 bpm. Measurement variability in dating: +/- 4 weeks by LMP, +/- 7 days by mean sac diameter (use before 6 weeks gestation if crown-rump length not able to be measured), +/- 5 days by crown-rump length (6-12 weeks gestation). Maternal organs: There is a left ovarian corpus luteal cyst. Maternal ovaries are otherwise unremarka ble. No pathologic pelvic free fluid. Maternal cervix appears visibly long and closed. IMPRESSION: Single living intrauterine gestation with an estimated sonographic gestational age of approximately 1 0 weeks and 3 days based off crown-rump length measurement. Recommend continued clinical surveillance and follow-up imaging with routine second trimester anatomic screening survey. Reviewed by: Zane Still MD on 05/26/2020 4:52 PM PST Approved by: Zane Still MD on 05/26/2020 4:52 PM PST Station ID: [id number]
== END 2020-05-26 14:44 | disposition home or self-care (01) ==
LOC: DI 14:43
PROVIDERS: ATTEND Nurse Practitioner Obstetrics & Gynecology
DX: Z32.01 Encounter for pregnancy test, result positive (principal)

== ENCOUNTER 2020-05-27 08:00 | Outpatient (CLI) | payer OTHER ==
[2020-05-27 19:17] LABS: TRICHOMONAS VAGINALIS DNA NEGATIVE (NEGATIVE)
== END 2020-05-27 23:59 | disposition home or self-care (01) ==
LOC: LAB.N 08:00
PROVIDERS: ATTEND Advanced Practice Midwife
DX: Z34.90 Encounter for supervision of normal pregnancy, unspecified, unspecified trimester (principal); Z36.89 Encounter for other specified antenatal screening
CPT/HCPCS: 87491; 87591; 87661

== ENCOUNTER 2020-05-27 10:35 | Outpatient (CLI) | payer OTHER ==
[2020-05-27 11:18] LABS: MUDS CUTOFF CONCENTRATIONS CUTOFF CONC BELOW:
[2020-05-27 11:19] LABS: BASOPHILS % (AUTO) 0.3 %; EOSINOPHILS # (AUTO) 0.1 10^3/uL (0.0-0.7); EOSINOPHILS % (AUTO) 0.7 %; HGB - HEMOGLOBIN 14.9 g/dL (12.0-16.0); LYMPHOCYTES # (AUTO) 1.5 10^3/uL (1.5-3.5); LYMPHOCYTES % (AUTO) 20.2 %; MEAN CORPUSCULAR HEMOGLOBIN 28.7 pg (27.0-31.0); MEAN CORPUSCULAR HGB CONC 32.8 g/dL (32.0-36.0); MEAN CORPUSCULAR VOLUME 87.3 fL (81.0-99.0); MEAN PLATELET VOLUME 10.9 fL (7.9-10.8); MONOCYTES # (AUTO) 0.5 10^3/uL (0.0-1.0); MONOCYTES % (AUTO) 6.5 %; NEUTROPHILS # (AUTO) 5.4 10^3/uL (1.5-6.6); PLT - PLATELET COUNT 205 10^3/uL (130-450); WHITE BLOOD COUNT 7.4 x10^3/uL (4.8-10.8)
[2020-05-27 11:21] LABS: BILIRUBIN,URINE NEGATIVE (NEGATIVE); GLUCOSE, URINE (UA) NEGATIVE (NEGATIVE); KETONES,URINE (UA) NEGATIVE (NEGATIVE); LEUKOCYTE ESTERASE, URINE NEGATIVE (NEGATIVE); NITRITE,URINE NEGATIVE (NEGATIVE); OCCULT BLOOD,URINE NEGATIVE (NEGATIVE); PROTEIN,URINE NEGATIVE (NEGATIVE); UROBILINOGEN,URINE 0.2 (NORMAL) E.U./dL (NORMAL)
[2020-05-27 11:32] LABS: BACTERIA,URINE Rare /HPF (None Seen); CLARITY,URINE HAZY (CLEAR); RBC,URINE None Seen /HPF (0-5); SQUAMOUS EPITHELIAL CELL,UR MOD Squamous (<= Few)
[2020-05-27 11:33] LABS: AMPHETAMINE SCREEN,URINE NEGATIVE (NEGATIVE); BENZODIAZEPINES SCREEN, URINE NEGATIVE (NEGATIVE); COCAINE SCREEN URINE NEGATIVE (NEGATIVE); METHADONE SCREEN, URINE NEGATIVE (NEGATIVE); METHAMPHETAMINES SCREEN, URINE NEGATIVE (NEGATIVE); OPIATE SCREEN, URINE NEGATIVE (NEGATIVE); OXYCODONE SCREEN, URINE NEGATIVE (NEGATIVE); PROPOXYPHENE SCREEN, URINE NEGATIVE (NEGATIVE); TRICYCLIC ANTIDEPRESSANT,URINE NEGATIVE (NEGATIVE)
[2020-05-28 07:41] LABS: HIV AG/AB 4TH GEN NON-REACTIVE (NON-REACTIVE)
[2020-05-28 12:33] LABS: HEPATITIS B SURFACE ANTIGEN NON-REACTIVE (NON-REACTIVE); HEPATITIS C ANTIBODY NON-REACTIVE (NON-REACTIVE)
== END 2020-05-27 10:36 | disposition home or self-care (01) ==
LOC: LAB 10:35
PROVIDERS: ATTEND Advanced Practice Midwife
DX: Z34.90 Encounter for supervision of normal pregnancy, unspecified, unspecified trimester (principal); Z36.89 Encounter for other specified antenatal screening
CPT/HCPCS: 36415; 80306; 81001; 81599; 85025; 86592; 86762; 86787; 86803; 86850; 86900; 86901; 87086; 87340; 87389

== ENCOUNTER 2020-06-19 19:53 | Outpatient (CLI) | payer OTHER | END 2020-06-19 19:54 | disposition home or self-care (01) | LOC: COV 19:53 | PROVIDERS: ATTEND Family Medicine | DX: R06.02 Shortness of breath (principal); R53.83 Other fatigue; Z20.822 Contact with and (suspected) exposure to COVID-19 ==

== ENCOUNTER 2020-07-28 15:45 | Outpatient (CLI) | payer OTHER ==
--- NOTE | 2020-07-29 17:45 | Ultrasound Report ---
PROCEDURE: OB Detailed Eval INDICATIONS: SUPERVISION OF OUTSIDE/PRIOR DATING DATA: Last menstrual period (LMP): 03/10/2020. LMP-based estimated date of delivery (JEANNE): 12/15/2020. First dating scan (date and location): 05/26/2020. Estimated date of delivery (JEANNE) from first dating scan: 12/19/2020. Provider stated JEANNE has been esta blished as 12/15/2020. TECHNIQUE: Real-time scanning was performed of the fetus, with image documentation and biometric measurements. COMPARISON: OB ultrasound 05/26/2020 FINDINGS: General: A single living intrauterine gestation is present. Presentation: Placenta: Placental position is posterior, without previa. Amniotic fluid index: 13.9 cm, 47th percentile for gestational age. Largest pocket 4 cm heart rate: 140 beats per minute. Maternal cervical canal: 3.9 cm long; normal length is 2.5 cm or more. biometrics: Biparietal diameter: 4.1 cm 18 weeks 3 days Head circumference: 16.6 cm 19 weeks 2 days Abdominal circumference: 13.8 cm 19 weeks 1 day Femur length: 3.4 cm 20 weeks 5 days Estimated gestational age from initial scan: 20 weeks 0 days Composite gestational age from present scan: 19 weeks 3 days Estimated weight and percentile: 314 g 34th percentile Measurement variability in biometric dating: +/- 10 days from 12-20 weeks gestation, +/- 2 weeks from 20-30 weeks gestation, +/- 3 weeks at 30 weeks gestation or later. Anatomic survey: Neuro: Ventricles not well seen. Nuchal skin fold: Not well seen. Face: Nose and lips, facial profile are not well seen. Spine: Not well seen. Heart: 4-chambered heart and outflow tracts are not well seen. Diaphragm: Diaphragm is not well seen Stomach: Left-sided stomach is present. Kidneys: Not well seen Cord: 3 vessel cord has orthotopic insertion. Bladder: Normal in size. Extremities: All 4 extremities are visualized. IMPRESSION: 1. Single live intrauterine . 2. Markedly limited exam with suboptimal visualization of anatomic structures. Follow-up imaging is r ecommended. Reviewed by: Linn Reyes MD on 07/29/2020 4:43 PM [place] Approved by: Linn Reyes MD on 07/29/2020 4:43 PM [place] Station ID: [id number]
== END 2020-07-28 15:46 | disposition home or self-care (01) ==
LOC: DI 15:45
PROVIDERS: ATTEND Nurse Practitioner Obstetrics & Gynecology
DX: Z34.92 Encounter for supervision of normal pregnancy, unspecified, second trimester (principal)

== ENCOUNTER 2020-08-19 12:46 | Outpatient (CLI) | payer OTHER ==
--- NOTE | 2020-08-19 17:45 | Ultrasound Report ---
PROCEDURE: OB F/U or Repeat INDICATIONS: SUPERVISION OF , COMPLETION OF FAS OUTSIDE/PRIOR DATING DATA: Last menstrual period (LMP): 03/10/2020. LMP-based estimated date of delivery (JEANNE): 12/15/2020. First dating scan (date and location): 05/26/2020. Estimated date of delivery (JEANNE) from first dating scan: 12/19/2020. Clinical JEANNE 12/15/2020. TECHNIQUE: Real-time scanning was performed of the fetus, with image documentation and biometric measurements. Endovaginal scanning: Not performed COMPARISON: OB ultrasound, 05/26/2020, 07/28/2020. FINDINGS: General: A single living intrauterine gestation is present. Presentation: Breech Placenta: Placental position is posterior, without previa. Amniotic fluid index: 15.5 cm, 35.2% for gestational age. heart rate: 152 beats per minute. Maternal cervical canal: 3.3 cm long; normal length is 2.5 cm or more. biometrics: Not performed. Estimated gestational age from initial scan: 23 weeks 1 day. Measurement variability in biometric dating: +/- 10 days from 12-20 weeks gestation, +/- 2 weeks from 20-30 weeks gestation, +/- 3 weeks at 30 weeks gestation or more. Other: anatomic survey demonstrates normal cerebral ventricles/choroid plexus, cisterna magnum, cerebellum, facial structures (face, lip and orbits), 4-chamber heart and cardiac outflow tra cts, diaphragm, stomach, and use, and urinary latter. IMPRESSION: 1. A single living intrauterine gestation is again demonstrated. 2. Normal GABI. 3. Completion of anatomic survey. No anomaly is present. Reviewed by: Matt Alva MD on 08/19/2020 5:43 PM PDT Approved by: Matt Alva MD on 08/19/2020 5:43 PM PDT Station ID: [id number]
== END 2020-08-19 12:47 | disposition home or self-care (01) ==
LOC: DI 12:46
PROVIDERS: ATTEND Nurse Practitioner Obstetrics & Gynecology
DX: Z34.90 Encounter for supervision of normal pregnancy, unspecified, unspecified trimester (principal)

== ENCOUNTER 2020-09-04 08:00 | Outpatient (CLI) | payer OTHER | END 2020-09-04 23:59 | disposition home or self-care (01) | LOC: LAB.R 08:00 | PROVIDERS: ATTEND Nurse Practitioner Obstetrics & Gynecology | DX: M54.89 Other dorsalgia (principal) | CPT/HCPCS: 87086 ==

== ENCOUNTER 2020-09-15 14:12 | Outpatient (CLI) | payer OTHER ==
[2020-09-15 15:24] LABS: HCT - HEMATOCRIT 37.9 % (37.0-47.0); HGB - HEMOGLOBIN 12.3 g/dL (12.0-16.0); MEAN CORPUSCULAR HEMOGLOBIN 27.9 pg (27.0-31.0); MEAN CORPUSCULAR HGB CONC 32.5 g/dL (32.0-36.0); MEAN CORPUSCULAR VOLUME 85.9 fL (81.0-99.0); MEAN PLATELET VOLUME 10.8 fL (7.9-10.8); RED BLOOD COUNT 4.41 10^6/uL (4.20-5.40); RED CELL DISTRIBUTION WIDTH 12.5 % (12.0-15.0); WHITE BLOOD COUNT 7.4 x10^3/uL (4.8-10.8)
== END 2020-09-15 14:13 | disposition home or self-care (01) ==
LOC: LAB 14:12
PROVIDERS: ATTEND Nurse Practitioner Obstetrics & Gynecology
DX: Z36.89 Encounter for other specified antenatal screening (principal); O99.891 Other specified diseases and conditions complicating pregnancy; M54.89 Other dorsalgia
CPT/HCPCS: 36415; 82950; 85027; 86850; 87086